=== PATIENT | male | born 2005 | race Caucasian/White ===

== ENCOUNTER → 2023-06-02 | Outpatient (CLI) | payer OTHER ==
--- NOTE | 2023-06-02 14:57 | CT ---
EXAMINATION TYPE: CT abdomen pelvis w con CT DLP: 366.4 mGycm, Automated exposure control for dose reduction was used. DATE OF EXAM: 06/02/2023 11:45 AM COMPARISON: None. CLINICAL INDICATION:Male, 17 years old with history of R10.32 LEFT LOWER QUADRANT PAIN; LLQ pain TECHNIQUE: Axial CT of the abdomen and pelvis. Sagittal and coronal reformats were created on a [employer] workstation. Contrast used:100 mL of Isovue 300 with IV Contrast, (none if empty) Oral contrast used: with Oral Contrast (none if empty) FINDINGS: LOWER CHEST: Unremarkable ABDOMEN LIVER: Unremarkable GALLBLADDER AND BILE DUCTS: Unremarkable. PANCREAS: Unremarkable. SPLEEN: Unremarkable. ADRENAL GLANDS: Unremarkable. KIDNEYS AND URETERS: No evidence of hydronephrosis or renal calculus. The ureters are unremarkable. PELVIS BLADDER: Unremarkable REPRODUCTIVE: Unremarkable. ABDOMEN & PELVIS STOMACH AND BOWEL: No evidence of bowel obstruction. PERITONEUM/RETROPERITONEUM: No evidence of pneumoperitoneum or free fluid. Simple fluid density lesio n along the anterior psoas muscle measuring 2.2 x 1.6 x 2.9 cm no contrast extends into this lesion. VASCULATURE: No evidence of aortic aneurysm. MUSCULOSKELETAL: No acute osseous abnormalities LYMPH NODES: No gross evidence for lymphadenopathy. SOFT TISSUE/ABDOMINAL WALL: No inguinal hernia visualized. IMPRESSION: 1. No acute left lower quadrant process to explain the patient's pain. No obstructive uropathy or ca lculus. 2. Fluid structure along the anterior aspect of the left psoas muscle favored represent an enteric d uplication cyst.
[2023-06-02 18:09] LABS: Basophils # (A) 0.02 X 10*3/uL (0.00-0.10); Basophils % (A) 0.5 %; Eosinophils # (A) 0.05 X 10*3/uL (0.04-0.35); Eosinophils % (A) 1.3 %; HCT 46.2 % (39.6-50.0); HGB 15.6 d/dL (13.0-17.0); Immature Grans, Automated 0 %; Lymphocytes # (A) 1.37 X 10*3/uL (0.90-5.00); Lymphocytes % (A) 34.5 %; MCH 29.8 pg (27.0-32.0); MCHC 33.8 d/dL (32.0-37.0); MCV 88.2 FL (80.0-97.0); Mean Platelet Volume 10.7 FL (9.5-12.2); Monocytes % (A) 7.6 %; NRBC Per 100 WBC 0 X 10*3/uL (0.00-0.01); Neutrophils # (A) 2.23 X 10*3/uL (1.80-7.70); Neutrophils % (A) 56.1 %; Platelet Count 214 X 10*3/uL (140-440); RBC 5.24 X 10*6/uL (4.40-5.60); RDW 12.3 % (11.5-14.5); WBC 3.97 X 10*3/uL (4.50-10.00)
[2023-06-02 18:22] LABS: ALT 18 U/L (10-49); AST 26 U/L (14-35); Albumin 4.9 d/dL (3.8-4.9); Albumin/Globulin Ratio 2.23 Ratio (1.60-3.17); Alkaline Phosphatase 63 U/L (41-126); BUN/Creat Ratio 12.09 Ratio (12.00-20.00); Bilirubin, Conjugated <0.20 mg/dL (0.20-0.40); Bilirubin,Unconjugated >0.20 mg/dL (0.20-1.00); Blood Urea Nitrogen 13.3 mg/dL (9.0-27.0); Calcium 10.1 mg/dL (8.7-10.3); Carbon Dioxide 30.6 mmol/L (21.6-31.8); Chloride 103 mmol/L (96-109); Globulin 2.2 d/dL (1.6-3.3); Glucose 91 mg/dL (70-110); Lipase 26 U/L (14-60); Potassium 4.7 mmol/L (3.5-5.5); Sodium 142 mmol/L (135-145); Total Bilirubin 0.4 mg/dL (0.3-1.2); Total Protein 7.1 d/dL (6.2-8.2)
== END | disposition home or self-care (01) ==
LOC: RADCTMAIN 09:33
PROVIDERS: ATTEND Internal Medicine
DX: R10.32 Left lower quadrant pain (principal)
CPT/HCPCS: 80053; 82248; 83690; 85025; 74177; Q9967

== ENCOUNTER → 2023-06-13 | Outpatient (CLI) | payer OTHER ==
[2023-06-13 11:06] LABS: Basophils % (A) 1 %; Eosinophils # (A) 0.1 k/uL (0-0.7); Eosinophils % (A) 2 %; HCT 46.4 % (39.0-53.0); HGB 16.2 gm/dL (13.0-17.5); Lymphocytes # (A) 1.8 k/uL (1.0-4.8); Lymphocytes % (A) 42 %; MCH 29.9 pg (25.0-35.0); MCHC 34.9 g/dL (31.0-37.0); MCV 85.7 fL (80.0-100.0); Mean Platelet Volume 7.9; Monocytes # (A) 0.2 k/uL (0-1.0); Monocytes % (A) 5 %; Neutrophils # (A) 2.1 k/uL (1.3-7.7); Neutrophils % (A) 49 %; Platelet Count 186 k/uL (150-450); RBC 5.42 m/uL (4.30-5.90); RDW 12.4 % (11.5-15.5); WBC 4.4 k/uL (4.0-11.0)
[2023-06-13 17:25] LABS: Hepatitis A Antibody IgM Nonreactive; Hepatitis B Core IgM Nonreactive; Hepatitis B Surface Antigen Nonreactive; Hepatitis C IgG Antibody Nonreactive
[2023-06-13 17:36] LABS: DNA Double-Stranded POSITIVE; Scleroderma SC-70 Ab <0.2 AI
[2023-06-13 18:07] LABS: HIV 2 AB Non-Reactive (Non-Reactive); HIV AB P24 Non-Reactive (Non-Reactive); HIV P24 AG Non-Reactive (Non-Reactive)
[2023-06-14 09:27] LABS: Albumin 4.9 d/dL (3.8-4.9); Protein, Total 7.1 d/dL (6.2-8.2)
[2023-06-14 15:17] LABS: Gamma Globulin 1.11 d/dL (0.70-1.50)
== END | disposition home or self-care (01) ==
LOC: LABWHC1 09:58
PROVIDERS: ATTEND Internal Medicine
DX: D72.819 Decreased white blood cell count, unspecified (principal)
CPT/HCPCS: 36415; 80074; 82607; 82746; 83615; 84165; 85025; 86038; 86039; 86225; 86235; 87390

== ENCOUNTER → 2023-12-08 | Outpatient (CLI) | payer OTHER ==
--- NOTE | 2023-12-09 07:48 | US ---
EXAMINATION TYPE: US scrotum with doppler. Grayscale and color Doppler Duplex imaging performed of t dwayne scrotum. DATE OF EXAM: 12/08/2023 COMPARISON: CT CLINICAL INDICATION: Male, 18 years old with history of K40.90 UNIL INGUINAL HERNIA, W/O OBST OR GANG R, NO; Pt states left testicle pain EXAM MEASUREMENTS: TESTICLES: Right Testicle: 4.2 x 2.0 x 2.5 cm Left Testicle: 4.3 x 1.7 x 2.8 cm EPIDIDYMIS HEAD: Right Epididymis: 1.0 cm Left Epididymis: 1.0 cm Doppler performed to assess for testicular vascularity; good bilateral color flow and waveforms are s een. There is no evidence of testicular torsion. Presence of hydroceles: Small amount of fluid inferior to left testicle Presence of varicoceles: No Left inguinal canal scanned, valsalva maneuvers obtained- no evidence of hernia IMPRESSION: Small left-sided hydrocele.
== END | disposition home or self-care (01) ==
LOC: RADUSWWP 15:31
PROVIDERS: ATTEND Internal Medicine
DX: N43.3 Hydrocele, unspecified (principal); K40.90 Unilateral inguinal hernia, without obstruction or gangrene, not specified as recurrent
CPT/HCPCS: 76870; 93975

== ENCOUNTER → 2024-07-11 | Outpatient (CLI) | payer OTHER ==
--- NOTE | 2024-07-13 17:44 | MR ---
EXAMINATION TYPE: MR brain wo/w con DATE OF EXAM: 07/11/2024 8:44 PM CLINICAL INDICATION: Male, 18 years old with history of R51.9 HEADACHE; PHH, headaches COMPARISON: None TECHNIQUE: Multi planar, multi sequence imaging was performed through the brain including: T1, T2, In version recovery, susceptibility weighted imaging and gradient echo imaging and Diffusion weighted im aging. The patient was then given intravenous contrast and multi planar, T1 fat-saturation images wer e obtained. IV Contrast: 6.5 cc Gadavist FINDINGS: The henry-white junctions, ventricular system, basal cisterns appear unremarkable. Diffusion-weighted imaging shows no evidence of restricted diffusion to suggest acute/subacute infarct. Intracranial ar terial flow voids are maintained. Midline structures show no abnormality. Couple of foci of high T2/F LAIR signal intensity are seen within the periventricular white matter. Largest is in the right parie tanner lobe measuring up to 6 mm (series 601, 21). Approximately 4 foci identified. The susceptibility w eighted images do not reveal any evidence for micro-hemorrhage. After administration of gadolinium, n o abnormal enhancement is seen. The bone marrow signal is within normal limits. Paranasal sinuses and mastoid air cells: T2 hypertensity 3.3 cm round thin-walled lesion within the r ight maxillary sinus. Visualized orbits: Orbital contents are intact. IMPRESSION: 1. No evidence of acute/subacute infarct or abnormal enhancement. 2. Nonspecific few white matter changes. Etiologies include migraine versus demyelinating process teressa kalyani small vessel ischemic disease versus other. 3. Right maxillary sinus 3.3 cm lesion favored to represent a mucous retention cyst.
== END | disposition home or self-care (01) ==
LOC: RADMRIMAIN 20:00
PROVIDERS: ATTEND Internal Medicine
DX: R51.9 Headache, unspecified
CPT/HCPCS: 70553